=== PATIENT | male | born 1985 | race Two or more races ===

== ENCOUNTER 2016-12-09 21:46 | Emergency (ER) | payer MEDICAID, OTHER ==
[2016-12-09] MEDS ORDERED: KETOROLAC 15 MG/1 ML SDV IVP ONE (21:55)
--- NOTE | 2016-12-09 21:57 | EDPHY ---
H & P Time Seen by Provider: 12/09/16 21:47 HPI/ROS: Chief Complaint: Chest pain HPI: 31-year-old male presenting from [facility] complaining of central chest pain for the last day. It is constant. Is about an 8/10. It is described as a "twisting in his lungs ". Has had some associated shortness of breath. No cough. No nausea or vomiting. Is not worsened with deep inspiration. No leg pain or swelling. He does smoke but has no other risk factors for coronary artery disease. No recent travel or long car rides. No immobility. There are no aggravating or alleviating factors. ROS: 10 point Review of Systems is negative except as noted in the HPI. PMH: Denies Medications: None Allergies: None Social History: Positive smoking, positive alcohol, occasional marijuana Family History: non-contributory Physical Exam: Gen: Awake, Alert, No Distress HEENT: Nose: no rhinorrhea Eyes: PERRLA, EOMI Mouth: Moist mucosa Neck: Supple, no JVD Chest: Patient has parasternal tenderness right greater than left to palpation reproducing his presenting complaint, lungs clear to auscultation Heart: S1, S2 normal, no murmur Abd: Soft, non-tender, no guarding Back: no CVA tenderness, no midline tenderness Ext: no edema, non-tender Skin: no rash Neuro: CN II-XII intact, Sensation grossly intact, Strength 5/5 in bilateral upper and lower extremities - Medical/Surgical History Hx Asthma: No Hx Chronic Respiratory Disease: No Hx Diabetes: No Hx Cardiac Disease: No Hx Renal Disease: No Hx Cirrhosis: No Hx Alcoholism: No Hx HIV/AIDS: No Hx Splenectomy or Spleen Trauma: No Other PMH: NONE - Social History Smoking Status: Never smoked Constitutional: Initial Vital Signs Temperature (C) 37 C 12/09/16 21:58 Heart Rate 103 H 12/09/16 21:58 Respiratory Rate 12 12/09/16 21:58 Blood Pressure 132/70 H 12/09/16 21:58 O2 Sat (%) 97 12/09/16 21:58 O2 Delivery Mode Room Air Allergies/Adverse Reactions: No Known Allergies Allergy (Unverified 07/01/14 16:29) Home Medications: Medication Instructions Recorded NK [No Known Home Meds] 07/01/14 Medical Decision Making - Diagnostics EKG Interpretation: ECG time 9:55 p.m.. Sinus rhythm with a rate of 83, normal axis, normal intervals, no acute ST or T-wave changes. Impression: Normal ECG. Imaging Results: Imaging Impressions Chest X-Ray 12/09/16 21:54 Impression: Features consistent with reactive airways' disease. Chest/Thorax CTA 12/09/16 22:31 Impression: There is no CT evidence for pulmonary artery embolic disease. Findings were discussed with Emir Leon MD at 23:14, on 12/09/2016. Imaging: Discussed imaging studies w/ obiee report developer Radiologist, I viewed and interpreted images myself ED Course/Re-evaluation: 31-year-old male presenting with 1 of parasternal chest pain. Is reproducible. He has had associated shortness of breath. No risk factors. Will check a D- dimer and cardiac labs. ECG is unremarkable. D-dimer is elevated. Will obtain a CT angiogram of the chest to rule out PE. CT scan of the chest is negative. Troponin is negative. Symptoms consistent with chest wall pain. Will discharge with nonsteroidal anti-inflammatories and Tylenol, follow up as an outpatient. - Data Points Laboratory Results: Laboratory Results 12/09/16 21:52 12/09/16 21:52 12/09/16 12/09/16 12/09/16 21:52 21:52 21:52 WBC 3.26 10^3/uL L 10^3/uL (3.80-9.50) RBC 4.53 10^6/uL 10^6/uL (4.40-6.38) Hgb 15.9 g/dL g/dL (13.7-17.5) Hct 43.7 % % (40.0-51.0) MCV 96.5 fL fL (81.5-99.8) MCH 35.1 pg H pg (27.9-34.1) MCHC 36.4 g/dL g/dL (32.4-36.7) RDW 13.2 % % (11.5-15.2) Plt Count 228 10^3/uL 10^3/uL (150-400) MPV 8.8 fL fL (8.7-11.7) Neut % (Auto) 30.7 % L % (39.3-74.2) Lymph % (Auto) 59.5 % H % (15.0-45.0) [place] % (Auto) 6.4 % % (4.5-13.0) Eos % (Auto) 0.3 % L % (0.6-7.6) Baso % (Auto) 3.1 % H % (0.3-1.7) Nucleat RBC Rel Count 0.0 % % (0.0-0.2) Absolute Neuts (auto) 1.00 10^3/uL L 10^3/uL (1.70-6.50) Absolute Lymphs (auto) 1.94 10^3/uL 10^3/uL (1.00-3.00) Absolute Monos (auto) 0.21 10^3/uL L 10^3/uL (0.30-0.80) Absolute Eos (auto) 0.01 10^3/uL L 10^3/uL (0.03-0.40) Absolute Basos (auto) 0.10 10^3/uL 10^3/uL (0.02-0.10) Absolute Nucleated RBC 0.00 10^3/uL 10^3/uL (0-0.01) Immature Gran % 0.0 % % (0.0-1.1) Immature Gran # 0.00 10^3/uL 10^3/uL (0.00-0.10) D-Dimer 3.12 ug/mLFEU H ug/mLFEU (0.00-0.50) Sodium 141 mEq/L mEq/L (134-144) Potassium 3.5 mEq/L mEq/L (3.5-5.2) Chloride 98 mEq/L mEq/L (97-110) Carbon Dioxide 22 mEq/l mEq/l (22-31) Anion Gap 21 mEq/L H mEq/L (8-16) BUN 7 mg/dL mg/dL (7-23) Creatinine 0.9 mg/dL mg/dL (0.7-1.3) Estimated GFR > 60 Glucose 110 mg/dL H mg/dL (70-100) Calcium 9.3 mg/dL mg/dL (8.5-10.4) Troponin I < 0.012 ng/mL ng/mL (0.000-0.034) Medications Given: Discontinued Medications Al Hydroxide/Mg Hydroxide (Maalox Susp) 30 ml PO ONCE ONE Stop: 12/09/16 21:59 Last Admin: 12/09/16 22:21 Dose: 30 ml Ketorolac Tromethamine (Toradol) 15 mg IVP EDNOW ONE Stop: 12/09/16 21:56 Last Admin: 12/09/16 22:21 Dose: 15 mg Lidocaine (Lidocaine 2% Viscous) 15 ml PO ONCE ONE Stop: 12/09/16 21:59 Last Admin: 12/09/16 22:21 Dose: 15 ml Departure - Departure Disposition: Home, Routine, Self-Care Clinical Impression: Chest wall pain Condition: Good Instructions: Chest Wall Pain (ED) Additional Instructions: Alternate acetaminophen (1000 mg) with ibuprofen (400 mg) every 4 hours as needed for aches or pains. Return to the emergency department for increasing chest pain, shortness of breath, fevers, chills, cough, or any other concerns. Follow up with [facility] in 3-4 days for further evaluation. Referrals: [facility],. [Clinic] - As per Instructions
[2016-12-09] MEDS ORDERED: MAG HYDROX/AL HYDROX/SIMETH 30 ML UDCUP PO ONE (21:58)
[2016-12-09] MEDS ORDERED: LIDOCAINE 2% VISCOUS 15 ML UDCUP PO ONE (21:58)
[2016-12-09 22:00] VITALS: TEMP 98.6
--- NOTE | 2016-12-09 22:01 | CPEKG ---
Heart Rate: 83 RR Interval: 723 P-R Interval: 164 QRSD Interval: 92 QT Interval: 356 QTC Interval: 419 P [place]: 65 QRS [place]: 60 T Wave [place]: 73 EKG Severity - NORMAL ECG - EKG Impression: SINUS RHYTHM Electronically Signed By: Emir Leon 10-Dec-2016 06:45:04
[2016-12-09 22:04] LABS: ADD DIFF? NO; ADD MORPH? NO; ADD SCAN? NO; ATYPICAL LYMPHOCYTE FLAG 0 (0-99); FRAGMENT RBC FLAG 0 (0-99); HEMATOCRIT 43.7 % (40.0-51.0); HEMOGLOBIN 15.9 g/dL (13.7-17.5); LEFT SHIFT FLG 0 (0-99); LIPEMIA HEMOLYSIS FLAG 90 (0-99); MEAN CELL HEMOGLOBIN 35.1 pg (27.9-34.1); MEAN CELL HEMOGLOBIN CONCENTR. 36.4 g/dL (32.4-36.7); MEAN CELL VOLUME 96.5 fL (81.5-99.8); MEAN PLATELET VOLUME 8.8 fL (8.7-11.7); PLATELET CLUMPS FLAG 0 (0-99); PLATELET COUNT 228 10^3/uL (150-400); RED BLOOD CELL COUNT 4.53 10^6/uL (4.40-6.38); RED CELL DISTRIBUTION WIDTH 13.2 % (11.5-15.2)
[2016-12-09 22:11] LABS: ANION GAP 21 mEq/L (8-16); CALCIUM 9.3 mg/dL (8.5-10.4); CARBON DIOXIDE 22 mEq/l (22-31); CHLORIDE 98 mEq/L (97-110); CREATININE 0.9 mg/dL (0.7-1.3); GLOMERULAR FILTRATION RATE > 60; GLUCOSE 110 mg/dL (70-100); POTASSIUM 3.5 mEq/L (3.5-5.2); SODIUM 141 mEq/L (134-144)
[2016-12-09] MEDS ORDERED: IOPAMIDOL (ISOVUE 370) 100 ML BTL IV ONE (22:32)
[2016-12-09 23:07] LABS: TROPONIN I < 0.012 ng/mL (0.000-0.034)
[2016-12-09] MEDS ORDERED: CHLORDIAZEPOXIDE 25MG PREPK#6 BTL TAKEHOME ONE (23:33)
[2016-12-09] MEDS ORDERED: ACETAMINOPHEN 160 MG/5 ML UDCUP PO ONE (23:48)
[2016-12-09] MEDS ORDERED: ACETAMINOPHEN 325 MG TAB ONE (23:49)
[2016-12-09] MEDS ORDERED: ACETAMINOPHEN 500 MG TAB PO ONE (23:50)
[2016-12-09] MEDS ORDERED: ACETAMINOPHEN 325 MG TAB PO ONE (23:51)
[2016-12-09 23:57] VITALS: BP 126/87; PULSE 88; RESP 12; O2SAT 97
== END 2016-12-09 23:56 | disposition home or self-care (01) ==
LOC: EDUNIT#
DX: R07.89 Other chest pain (principal); F17.200 Nicotine dependence, unspecified, uncomplicated
CPT/HCPCS: 96374; J1885; Q9967